=== PATIENT | male | born 1990 | race American Indian/Alaskan Native ===

== ENCOUNTER 2021-04-25 09:10 | Outpatient (CLI) | payer OTHER ==
--- NOTE | 2021-04-25 10:15 | XRay Report ---
Cervical spine-5 views Lumbar spine-3 views INDICATION: Generalized neck and back pain. COMPARISON: None. IMPRESSION: Minimal levoscoliosis in the lumbar spine centered at L2. Normal AP alignment in the lum bar spine and also normal cervical spine alignment. No significant discogenic DJD or facet arthropat hy. Incidental biconvex appearance of the L5 vertebral body. There are several differential diagnost ic possibilities including sickle cell disease. Correlate clinically for Signer Name: Steven Barnett MD Signed: 04/25/2021 10:11 AM Workstation Name: [email or web address]
== END 2021-04-25 09:11 | disposition home or self-care (01) ==
LOC: XRAY 09:10
PROVIDERS: ATTEND Internal Medicine
DX: M41.82 Other forms of scoliosis, cervical region (principal); M41.87 Other forms of scoliosis, lumbosacral region
CPT/HCPCS: 72040; 72100